=== PATIENT | female | born 1995 ===

== ENCOUNTER 2017-05-13 13:37 | Emergency (ER) | payer OTHER ==
[2017-05-13 13:49] VITALS: BP 103/69; RESP 16; TEMP 98.8; O2SAT 98
[2017-05-13] MEDS ORDERED: Naproxen 550 mg Tab PO STA (14:28)
[2017-05-13 14:52] LABS: RBC URINE < 1 /hpf (0-3); URINE BILIRUBIN NEGATIVE (NEGATIVE); URINE BLOOD NEGATIVE (NEGATIVE); URINE COLOR Yellow (YELLOW); URINE GLUCOSE (UA) NORMAL (Normal); URINE KETONE NEGATIVE (NEGATIVE); URINE LEUKOCYTE ESTERASE NEG Leu/uL (Negative); URINE PROTEIN NEGATIVE (NEGATIVE); URINE UROBILINOGEN NORMAL mg/dL (0.2-1.0); WBC URINE 1 /hpf (0-5)
[2017-05-13] MEDS ORDERED: Naproxen 550 mg Tab PO ONE (14:53)
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
--- NOTE | 2017-05-13 15:07 | RAD ---
PROCEDURE: Cervical Spine Radiographs. HISTORY: Pain. COMPARISON: None. FINDINGS: BONES: Alignment maintained. No fracture. Dens Intact. DISC SPACES: Normal. SOFT TISSUES: Normal. No prevertebral soft tissue swelling. OTHER FINDINGS: None. IMPRESSION: No radiographic evidence of acute fracture or subluxation.
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
[2017-05-13 15:23] VITALS: PULSE 74
== END 2017-05-13 15:20 | disposition home or self-care (01) ==
LOC: C.ER 13:37
DX: S13.4XXA Sprain of ligaments of cervical spine, initial encounter (principal); V47.6XXA Car passenger injured in collision with fixed or stationary object in traffic accident, initial encounter; Y92.410 Unspecified street and highway as the place of occurrence of the external cause